=== PATIENT | female | born 1935 | race Caucasian/White ===

== ENCOUNTER 2020-08-23 11:21 | Outpatient (CLI) | payer MEDICARE ==
[2020-08-23] MEDS ORDERED: LIDOcaine 2% 5ml jelly ONE (12:51)
[2020-08-23] MEDS ORDERED: LIDOcaine 1%/PF 5ML 10 MG/ML VIAL ONE (12:52)
[2020-08-23 13:40] LABS: BASOPHILS # (AUTO) 0.1 X10'3 (0-0.2); BASOPHILS % (AUTO) 1.3 % (0-1); EOSINOPHILS # (AUTO) 0.1 X10'3 (0-0.9); EOSINOPHILS % (AUTO) 2.8 % (0-6); HEMATOCRIT 31.3 % (35.0-45.0); HEMOGLOBIN 10.2 g/dl (12.0-16.0); LYMPHOCYTES # (AUTO) 1.2 X10'3 (1.1-4.8); LYMPHOCYTES % (AUTO) 22.5 % (21-51); MEAN CORPUSCULAR HEMOGLOBIN 28.7 PG (27.0-31.0); MEAN CORPUSCULAR HGB CONC 32.5 g/dL (33.0-36.5); MEAN CORPUSCULAR VOLUME 88.3 FL (78-98); MEAN PLATELET VOLUME 7.7 FL (7.4-10.4); MONOCYTES # (AUTO) 0.5 X10'3 (0-0.9); MONOCYTES % (AUTO) 8.5 % (2-12); NEUTROPHILS # (AUTO) 3.4 X10'3 (1.8-7.7); NEUTROPHILS % (AUTO) 64.9 % (42-75); PLATELET COUNT 299 X10'3 (140-440); RED BLOOD COUNT 3.54 X10'6 (4.20-5.60); WHITE BLOOD COUNT 5.3 X10'3 (4.5-11.0)
[2020-08-23 13:58] LABS: HEMOGLOBIN A1C 5.7 % (4.5-6.2)
[2020-08-23 14:06] LABS: ALANINE AMINOTRANSFERASE 18 U/L (12-78); ALBUMIN 3.7 G/DL (3.4-5.0); ALBUMIN/GLOBULIN RATIO 0.9 (1.1-1.5); ANION GAP 8 (8-16); ASPARTATE AMINO TRANSFERASE 21 U/L (10-37); BILIRUBIN,TOTAL 0.3 MG/DL (0.1-1.0); BLOOD UREA NITROGEN 45 MG/DL (7-18); C-REACTIVE PROTEIN 0.08 MG/DL (0.0-0.5); CALCIUM 9.5 MG/DL (8.5-10.1); CHLORIDE 102 MMOL/L (99-107); CREATININE 1.55 MG/DL (0.40-0.90); GLUCOSE 97 MG/DL (70-104); POTASSIUM 4.7 MMOL/L (3.5-5.1); SODIUM 137 MMOL/L (135-145); TOTAL CARBON DIOXIDE 26.6 MMOL/L (24-32); TOTAL PROTEIN 7.9 G/DL (6.4-8.2); eGFR 32 ML/MIN
[2020-08-23 14:16] LABS: ALKALINE PHOSPHATASE 128 IU/L (46-116)
== END 2020-08-23 23:59 | disposition home or self-care (01) ==
LOC: WOUND CARE 11:21
PROVIDERS: ATTEND Nurse Practitioner
DX: S81.801A Unspecified open wound, right lower leg, initial encounter (principal); E11.622 Type 2 diabetes mellitus with other skin ulcer; L98.492 Non-pressure chronic ulcer of skin of other sites with fat layer exposed; E03.9 Hypothyroidism, unspecified; W17.89XA Other fall from one level to another, initial encounter; Y93.89 Activity, other specified; Y92.89 Other specified places as the place of occurrence of the external cause; Y99.8 Other external cause status
CPT/HCPCS: 11043; 11046; 36415; 80053; 83036; 85025; 85651; 86140; G0463

== ENCOUNTER 2020-08-30 09:11 | Outpatient (CLI) | payer MEDICARE ==
[2020-08-30] MEDS ORDERED: LIDOcaine 2% 5ml jelly ONE (09:36)
== END 2020-08-30 23:59 | disposition home or self-care (01) ==
LOC: WOUND CARE 09:11
PROVIDERS: ATTEND Nurse Practitioner
DX: S81.801D Unspecified open wound, right lower leg, subsequent encounter (principal); E11.622 Type 2 diabetes mellitus with other skin ulcer; L98.492 Non-pressure chronic ulcer of skin of other sites with fat layer exposed; E03.9 Hypothyroidism, unspecified; W17.89XD Other fall from one level to another, subsequent encounter
CPT/HCPCS: 11042; 11045; 97606

== ENCOUNTER 2020-09-06 10:03 | Outpatient (CLI) | payer MEDICARE | END 2020-09-06 23:59 | disposition home or self-care (01) | LOC: WOUND CARE 10:03 | PROVIDERS: ATTEND Nurse Practitioner | DX: S81.801D Unspecified open wound, right lower leg, subsequent encounter (principal); E11.622 Type 2 diabetes mellitus with other skin ulcer; L98.492 Non-pressure chronic ulcer of skin of other sites with fat layer exposed; E03.9 Hypothyroidism, unspecified; W17.89XD Other fall from one level to another, subsequent encounter | CPT/HCPCS: 93922; 93970; 97606 ==

== ENCOUNTER → 2020-09-13 | Outpatient (CLI) | payer MEDICARE ==
[~2020-09-13] MED LIST: LIDOcaine 2% 5ml jelly ONE
== END | disposition home or self-care (01) ==
LOC: WOUND CARE 09:01
PROVIDERS: ATTEND Nurse Practitioner Family
DX: S81.801D Unspecified open wound, right lower leg, subsequent encounter (principal); E11.622 Type 2 diabetes mellitus with other skin ulcer; L98.492 Non-pressure chronic ulcer of skin of other sites with fat layer exposed; E03.9 Hypothyroidism, unspecified; W17.89XD Other fall from one level to another, subsequent encounter
CPT/HCPCS: 87070; 87075; 87077; 87186; 97597; 97598

== ENCOUNTER 2020-09-20 08:53 | Outpatient (CLI) | payer MEDICARE ==
[2020-09-20] MEDS ORDERED: LIDOcaine 2% 5ml jelly ONE ×2 (09:33)
== END 2020-09-20 23:59 | disposition home or self-care (01) ==
LOC: WOUND CARE 08:53 → EDSTATUS 09:40 → WOUND CARE 23:59
PROVIDERS: ATTEND Nurse Practitioner
DX: S81.801D Unspecified open wound, right lower leg, subsequent encounter (principal); E11.622 Type 2 diabetes mellitus with other skin ulcer; L98.492 Non-pressure chronic ulcer of skin of other sites with fat layer exposed; E03.9 Hypothyroidism, unspecified; W17.89XD Other fall from one level to another, subsequent encounter
CPT/HCPCS: 11042; 11045